=== PATIENT | male | born 1935 | race Caucasian/White ===

== ENCOUNTER → 2016-07-16 | Day surgery (SDC) | payer MEDICARE, OTHER ==
[~2016-07-16] VITALS: Ht 165.1 cm; Wt 68.0 kg
[2016-07-16] VITALS (8 sets, daily range): BP systolic 102–137; BP diastolic 69–86
[~2016-07-16] MED LIST: ADVAIR 250-501 EACH INH; ALLEGRA ALLERG180 M1 PO; ASPIRIN-LOW81 MG ORAL; BISACODYL5 MG ORAL; DIOVAN40 MG ORAL; IBUPROFEN200 M2 ORAL; IMMUNOGLOBULIN; LR 1000ml 1,000 ML IV SCH; LR 1000ml 1,000 ML IVLG SCH; LR 1000ml ONE; MIRALAX17 G2 ORAL; NEXIUM40 MG ORAL; Propofol 10mg/ml 20ml IV ONE; REFRESH CLASSI1 EACH OP; TRAMADOL HCL50 MG ORAL; VITAMIN D-32000 UNI1 PO; XALATAN2.5 ML BOTH EYES; ZETIA10 MG ORAL; fentaNYL 100 mcg/2 mL IV PRN
--- NOTE | 2016-07-16 09:10 | Pre-Procedure Note/Attestation ---
Pre-Procedure Note/Attestation Complete Prior to Procedure Planned Procedure: not applicable Procedure Narrative: colonoscopy Indications for Procedure Pre-Operative Diagnosis: screening Attestation I attest that I discussed the nature of the procedure; its benefits; risks and complications; and alternatives (and the risks and benefits of such alternatives ), prior to the procedure, with the patient (or the patient's legal member service representative). I attest that, if there was a reasonable possibility of needing a blood transfusion, the patient (or the patient's legal member service representative) was given the [facility] standardized written summary, pursuant to the [place] Blood Safety Act ([place] Health and Safety Code # 1645, as amended). I attest that I re-evaluated the patient just prior to the surgery and that there has been no change in the patient's H&P, except as documented below: GLORY BECKMAN Jul 16, 2016 09:10
--- NOTE | 2016-07-16 09:11 | Short Stay Surgery H&P ---
History of Present Illness History of Present Illness Chief Complaint screening colon HPI Don Orona is a 81 year old male who was admitted on for Colon Screening Patient History Allergies: Coded Allergies: AMOXICILLIN (Verified Allergy, Unknown, 10/05/14) Contrast Media (Verified Allergy, Unknown, 01/01/08) DICYCLOMINE (Verified Allergy, Unknown, 10/05/14) IODINE (Verified Allergy, Unknown, 10/05/14) SIMVASTATIN (Verified Allergy, Unknown, 10/05/14) Uncoded Allergies: FEXOFENADINE (Allergy, Unknown, 01/01/08) HYDROCHLOROTHIAZIDE (Allergy, Unknown, 01/01/08) PAST MEDICAL HISTORY: (1) Chronic inflammatory demyelinating polyneuropathy (2) Weight loss (3) Constipation Past Surgeries: Social History: Medication History Scheduled Aspirin (Aspirin EC), 81 MG ORAL DAILY, (Reported) Bisacodyl* (Dulcolax*), 5 MG ORAL PRN, (Reported) Cholecalciferol (Vitamin D3) (Vitamin D-3), 500 UNIT PO QID, (Reported) Fexofenadine Hcl (Vida Allergy), 180 MG PO PRN, (Reported) Fluticasone/Salmeterol (Advair 250-50 Diskus), 1 PUFF INH EVERY 12 HOURS, ( Reported) Ibuprofen (Ibuprofen), 200 MG ORAL Q6H, (Reported) Latanoprost* (Xalatan*), 1 DROP BOTH EYES BEDTIME, (Reported) Polyvinyl Alcohol/Povidone/Pf (Refresh Classic Eye Drops), 1 EACH OP da, ( Reported) Valsartan (Diovan), 20 MG ORAL DAILY, (Reported) [IV immunoglobulin ], 25 MG q3wk, (Reported) Scheduled PRN Tramadol Hcl* (Ultram*), 25 MG ORAL Q6H PRN for For Pain, (Reported) Discontinued Medications Esomeprazole Magnesium (Nexium), 40 MG ORAL PRN, (Reported) Discontinued Reason: Pt stopped taking med Ezetimibe (Zetia*), 10 MG ORAL BEDTIME, (Reported) Discontinued Reason: Pt stopped taking med Polyethylene Glycol 3350* (Miralax*), 17 GM ORAL PRN, (Reported) Discontinued Reason: Pt stopped taking med Review of Systems Cardiovascular: Reports: no symptoms Respiratory: Reports: no symptoms Skeletal: Reports: no symptoms Gastrointestinal: Reports: no symptoms Neurologic: Reports: no symptoms Endocrine: Reports: no symptoms Hematologic: Reports: no symptoms Physical Exam Vital Signs Last Vital Signs Date Time Temp Pulse Resp B/P Pulse Ox O2 Delivery O2 Flow Rate FiO2 07/16/16 08:47 97.9 82 15 131/86 98 Room Air Skin: normal HENT: normal Heart: normal Lungs: normal Abdomen: normal Extremities: normal Plan Plan of Care colonoscopy Final Diagnosis: Attestation Are the patient's medical conditions optimized for surgery? Attestation Response: yes GLORY BECKMAN Jul 16, 2016 09:11
--- NOTE | 2016-07-16 10:29 | Anethesia Preoperative Eval ---
Anesthesia Pre-op PMH/ROS General Date of Evaluation: Jul 16, 2016 Time of Evaluation: 10:06 Anesthesiologist: Moreno ASA Score: ASA 2 Mallampati Score Class I : Soft palate, uvula, fauces, pillars visible Class II: Soft palate, uvula, fauces visible Class III: Soft palate, base of uvula visible Class IV: Only hard plate visible Mallampati Classification: Class II Surgeon: Mario Diagnosis: Screening Surgical Procedure: Colonoscopy Family History: no anesthesia problems Allergies: Coded Allergies: AMOXICILLIN (Verified Allergy, Unknown, 10/05/14) Contrast Media (Verified Allergy, Unknown, 01/01/08) DICYCLOMINE (Verified Allergy, Unknown, 10/05/14) IODINE (Verified Allergy, Unknown, 10/05/14) SIMVASTATIN (Verified Allergy, Unknown, 10/05/14) Uncoded Allergies: FEXOFENADINE (Allergy, Unknown, 01/01/08) HYDROCHLOROTHIAZIDE (Allergy, Unknown, 01/01/08) Past Medical History Cardiovascular: Reports: HTN Pulmonary: Denies: COPD, CONRADO, asthma, other Gastrointestinal/Genitourinary: Denies: CRI, ESRD, GERD, other Neurologic/Psychiatric: Denies: CVA, TIA, dementia, depression/anxiety, other Endocrine: Denies: DM, hypothyroidism, other, steroids HEENT: Denies: [place] (L), [place] (R), cataract (L), cataract (R), glaucoma, other Hematology/Immune: Denies: DVT, anemia, bleeding disorder, other Musculoskeletal/Integumentary: Denies: DDD, DJD, OA, RA, edema, other PMH Narrative: HTN Anesthesia Pre-op Phys. Exam Physician Exam Last Vital Signs Date Time Temp Pulse Resp B/P Pulse Ox O2 Delivery O2 Flow Rate FiO2 07/16/16 08:47 97.9 82 15 131/86 98 Room Air Constitutional: NAD Neurologic: CN 2-12 intact Cardiovascular: RRR, no M/R/G Respiratory: CTA Gastrointestinal: S/NT/ND Airway Exam Mallampati Score: Class II MO: full ROM: full Teeth: intact Anesthesia Pre-op A/P Studies Pre-op Studies: EKG - SR with APCs Risk Assessment & Plan Assessment: For screening colonoscopy Plan: GA, TIVA Status Change Before Surgery: No Pre-Antibiotics Drug: None KERRY EATON M.D. Jul 16, 2016 10:29
--- NOTE | 2016-07-16 10:30 | Immediate Post-Op Evaluation ---
Immediate Post-Op Evalulation Immediate Post-Op Evalulation Procedure: Colonoscopy Date of Evaluation: Jul 16, 2016 Time of Evaluation: 10:45 IV Fluids: 350 Blood Pressure Systolic: 125 Blood Pressure Diastolic: 72 Pulse Rate: 78 Respiratory Rate: 21 O2 Sat by Pulse Oximetry: 100 Temperature (Fahrenheit): 98.6 Pain Score (1-10): 0 Nausea: No Vomiting: No Complications No complication Patient Status: awake, patent, none Hydration Status: adequate Drug: None KERRY EATON M.D. Jul 16, 2016 10:30
--- NOTE | 2016-07-16 10:35 | Endoscopy Procedure Note ---
Endoscopy Procedure Note Indication for Procedure: screening Procedures Performed: colonoscopy Operative Findings/Diagnosis: diverticulosis Specimen: yes Pt Tolerated Procedure Well: Yes Estimated Blood Loss: none Anesthesiologist: pat Anesthesia: MAC Implant(s) used?: No 50 yrs or older w/o bx or poly: Not Applicable 10yrs. F/U not recommended: Not Applicable GLORY BECKMAN Jul 16, 2016 10:35
--- NOTE | 2016-07-16 10:44 | 48 Hour Post Anesthesia Eval ---
Post Anesthesia Evaluation Procedure: Colonoscopy Date of Evaluation: Jul 16, 2016 Time of Evaluation: 11:15 Blood Pressure Systolic: 127 0: 76 Pulse Rate: 73 Respiratory Rate: 20 O2 Sat by Pulse Oximetry: 100 Airway: patent Nausea: No Vomiting: No Pain Intensity: 0 Hydration Status: adequate Cardiopulmonary Status: Stable Mental Status/LOC: patient returned to baseline Follow-up Care/Observations: As per surgery Post-Anesthesia Complications: No anesthetic complication Follow-up care needed: N/A KRERY EATON M.D. Jul 16, 2016 10:44
--- NOTE | 2016-07-16 20:28 | Procedure Note ---
DATE OF PROCEDURE: 07/16/2016 SURGEON: Torsten Martin M.D. PROCEDURE: Colonoscopy with biopsy. ANESTHESIA: Adrian Mayer M.D. INSTRUMENT: Olympus adult flexible colonoscope. INDICATION: Screening colonoscopy evaluation. REASON FOR PROCEDURE: The procedure, risks, benefits, and possible consequences, including hemorrhage, aspiration, perforation and infection, and alternative treatments, were explained to the patient/legal guardian by Dr. Torsten Martin and the patient/legal guardian understood and accepted these risks. DESCRIPTION OF PROCEDURE: After informed consent was obtained and the patient was adequately sedated, first rectal exam was performed, which was normal. Then, the scope was advanced from the rectum into the cecum, documented by orifice, ileocecal valve, and upper quadrant palpation. Quality of prep was fair. The patient had evidence of scattered sigmoid diverticulosis. One diminutive polyp was removed from the descending colon. The rest of the examination was within normal limit. Retroflexion of rectum showed no obvious large internal hemorrhoids. SUMMARY FINDINGS: 1. One colonic polyp removed, see above for detail. 2. Diverticulosis. 3. Internal hemorrhoids. RECOMMENDATIONS: Followup biopsies and treat accordingly. Torsten Martin M.D. DR: AUGUSTO JOB#: [id number] CC:
--- NOTE | 2016-07-16 23:56 | Cardiology Report ---
APPROVED REPORT EKG Measurement Heart [id number] Atrial fibrillation with premature ventricular or aberrantly conducted complexes Abnormal ECG
== END | disposition home or self-care (01) ==
LOC: GAS 07:25
DX: Z12.11 Encounter for screening for malignant neoplasm of colon (principal); D12.4 Benign neoplasm of descending colon; K64.8 Other hemorrhoids; K57.30 Diverticulosis of large intestine without perforation or abscess without bleeding; G61.81 Chronic inflammatory demyelinating polyneuritis; I10 Essential (primary) hypertension; Z88.8 Allergy status to other drugs, medicaments and biological substances; Z88.1 Allergy status to other antibiotic agents; Z91.041 Radiographic dye allergy status; Z79.82 Long term (current) use of aspirin
CPT/HCPCS: 45380; 93005; J2704; J7120; 94003; 94150

== ENCOUNTER 2017-02-20 11:25 | Outpatient (CLI) | payer MEDICARE, OTHER ==
[~2017-02-20 11:25] MED LIST changes: -LR 1000ml 1,000 ML IV SCH; -LR 1000ml 1,000 ML IVLG SCH; -LR 1000ml ONE; -Propofol 10mg/ml 20ml IV ONE; -fentaNYL 100 mcg/2 mL IV PRN
--- NOTE | 2017-02-20 14:01 | Diagnostic Imaging Report ---
Indication: Palpable mass above the shoulder Comparison: None 3 views of the right shoulder and 2 view clavicle obtained Findings: No mass identified. 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 joint noted. The bones are osteopenic. Impression: No mass identified
--- NOTE | 2017-02-20 14:02 | Diagnostic Imaging Report ---
Indication: Pain Findings: 3 views of the right shoulder were obtained. Please refer to the right clavicle series as findings are incorporated into that report
--- NOTE | 2017-02-20 14:02 | Diagnostic Imaging Report ---
Indication: Pain Findings: 3 views of the right shoulder were obtained. Please refer to the right clavicle series as findings are incorporated into that report
--- NOTE | 2017-02-20 14:02 | Diagnostic Imaging Report ---
Indication: Pain Findings: 3 views of the right shoulder were obtained. Please refer to the right clavicle series as findings are incorporated into that report
--- NOTE | 2017-02-21 11:56 | Diagnostic Imaging Report ---
Indication: Shoulder mass Technique: MRI of the right shoulder obtained in a 1.5 Janis magnet. The study was protocoled for evaluation of a palpable mass for which a marker was placed. Pulse sequences obtained include multiplanar T1 fast spin-echo, proton and T2 fast echo fat saturation, pre-and post T1 fast echo fat saturation. Findings: Correlation made with plain film of the right shoulder and clavicle. The marker is noted. Just adjacent to the marker, there are clustered cystic foci altogether measuring 1.5 x 1.3 x 0.7 cm consistent with ganglia or synovial cysts emanating from the acromial clavicular joint. The acromioclavicular joint is markedly heterogeneous with narrowing of the joint space, extensive capsular redundancy, extensive subchondral signal alteration and osteophyte formation. There is no mass. The study was not protocoled for internal derangement of shoulder but there is evidence of severe bicipital tendinopathy. The long head of the biceps tendon is enlarged and shows marked abnormal intrinsic T2 signal the bicipital attachment to the superior labrum is not evaluated well on this examination. There is also prominent Hill-Sachs deformity of the posterior lateral part of the humeral head. This is indicative of previous anterior dislocation. There is also suggestion of diffuse rotator cuff tendinopathy with abnormal intermediate to hyperintense T2 signal within the cuff. Again this is not evaluated adequately on the current study. Impression: No mass is identified. The palpable area corresponds to a synovial or ganglion cysts (1.3 x 1.5 x 0.7 cm) emanating from and associated with severe osteoarthritis of the acromioclavicular joint as described above. Severe tendinopathy versus partial tear of the intracapsular portion of the long head of biceps tendon. Suspicion of rotator cuff pathology. Hill-Sachs deformity of the humeral head. Moderate osteoarthritis of the glenohumeral joint. Standard MR of the shoulder is suggested for evaluation of these findings.
== END 2017-02-20 13:25 | disposition home or self-care (01) ==
LOC: MRI 11:25
DX: R22.31 Localized swelling, mass and lump, right upper limb (principal)
CPT/HCPCS: 73000; 73030; 73223; A9585